=== PATIENT | female | born 1960 | race Caucasian/White ===

== ENCOUNTER → 2017-09-15 | Outpatient (CLI) | payer BC ==
[~2017-09-15] MED LIST: AMOXICILLIN 50500 MG PO; BACTRIM PO; GUAIFEN-PSE 6001 TER PO; NO HOME MEDICATIONS; NORCO 325 MG-51 TAB PO
== END ==
LOC: MC.RAD 09:45
DX: Z12.31 Encounter for screening mammogram for malignant neoplasm of breast (principal)

== ENCOUNTER 2017-10-01 09:38 | Day surgery (SDC) | payer BC ==
[~2017-10-01] VITALS: Ht 157.5 cm; Wt 61.1 kg
[2017-10-01 10:55] VITALS: BP 134/74; PULSE 69; TEMP 98.3
[2017-10-01] MEDS ORDERED: ZESTRIL 10MG10 MG PO (11:06)
[2017-10-01 12:30] VITALS: BP 133/90; PULSE 68; TEMP 97.6
[2017-10-01 12:45] VITALS: BP 109/78; PULSE 64
[2017-10-01 17:41] VITALS: BP 141/65; PULSE 68
== END 2017-10-01 13:15 | disposition home or self-care (01) ==
LOC: SDCO 09:38
DX: Z12.11 Encounter for screening for malignant neoplasm of colon (principal); F17.210 Nicotine dependence, cigarettes, uncomplicated
CPT/HCPCS: OP; J2250; J3010; J7030